=== PATIENT | male | born 1935 | race Caucasian/White ===

== ENCOUNTER 2020-07-02 07:12 | Inpatient (IN) | payer OTHER ==
[~2020-07-02] VITALS: Ht 180.3 cm; Wt 94.9 kg
[2020-07-02 08:21] LABS: Basophils # (auto) 0 10 ^3/uL (0-0.2); Basophils % (auto) 0.1 % (0.0-2.0); Eosinophils # (auto) 0 10 ^3/uL (0-0.8); Monocytes # (auto) 0.7 10 ^3/uL (0-1.3); Red Blood Cells 2.28 10^6/uL (4.5-5.90)
[2020-07-02 08:23] LABS: Hematocrit 24.1 % (41.0-53.0); Hemoglobin 8.1 g/dL (13.5-17.5); Lymphocytes # (auto) 10.3 10 ^3/uL (0.4-5.4); Lymphocytes % (auto) 37.6 % (10.0-50.0); Mean Corpuscular Hemoglobin 35.6 pg (28.0-32.0); Mean Corpuscular Hgb Conc. 33.6 g/dL (32.0-36.0); Mean Corpuscular Volume 105.9 fL (80.0-100.0); Monocytes % (auto) 2.7 % (0.0-12.0); Neutrophils # (auto) 16.4 10 ^3/uL (1.6-8.6); Neutrophils % (auto) 59.6 % (37.0-80.0); Nucleated Red Blood Cells % 0.9 %; Platelet Count (auto) 213 10^3/uL (140-450); White Blood Cell 27.5 10^3/uL (4.4-10.8)
[2020-07-02] MEDS ORDERED: SODIUM CHLORIDE 0.9% 1,000 ML IV ONE ×2 (08:30→11:30)
[2020-07-02 08:52] LABS: Calcium 8.3 mg/dL (8.5-10.1); Potassium 4.6 mmol/L (3.5-5.1)
[2020-07-02 08:57] LABS: BUN/Creatinine Ratio 47.2; Bilirubin, Total 0.4 mg/dL (0.2-1.0); Total Protein 5.2 g/dL (6.4-8.2)
[2020-07-02 09:05] LABS: INR 1.06 (0.9-1.15)
[2020-07-02] MEDS ORDERED: HYDROmorphone HCL 2 MG/ML VL IV ONE (10:45)
[2020-07-02] MEDS ORDERED: ONDANSETRON HCL 4 MG/2 ML VIAL IV ONE (10:45)
[2020-07-02] MEDS ORDERED: MORPHINE SULF INJ 2 MG/ML SYRINGE 1ML IV PRN (11:30)
[2020-07-02] MEDS ORDERED: NITROGLYCERIN 0.4 MG SL TAB SL PRN (11:30)
[2020-07-02] MEDS: SODIUM CHLORIDE 0.9% 1,000 ML IV SCH ×2 (11:43→21:30)
[2020-07-02] MEDS ORDERED: IOHEXOL 350 MG/ML 100ML IJ ONE (11:43)
[2020-07-02] MEDS ORDERED: ALBUTEROL SULF 2.5 MG/0.5ML(0.5%) NEB SOLN NEB PRN (11:45)
[2020-07-02] MEDS ORDERED: ONDANSETRON HCL 4 MG/2 ML VIAL IV PRN (11:45)
[2020-07-02] MEDS ORDERED: IPRATROPIUM BROM 0.5 MG/2.5ML INH SOL NEB PRN (11:45)
[2020-07-02 12:06] LABS: Urine Bacteria NONE SEEN /hpf (None Seen); Urine Blood TRACE /uL (Negative); Urine Mucus FEW (None Seen); Urine Specific Gravity 1.024 (1.001-1.035); Urine WBC 1 /hpf (0 - 3)
[2020-07-02] MEDS: PIPERACILLIN-TAZOB 3.375GM 100 ML IV SCH ×2 (12:14→17:18)
[2020-07-02 13:09] VITALS: BP 125/87
[2020-07-02] MEDS ORDERED: AMLO-489 PO (14:28)
[2020-07-02] MEDS ORDERED: TERA5CAP PO (14:28)
[2020-07-02] MEDS ORDERED: ALBU108A5 INH (14:28)
[2020-07-02] MEDS ORDERED: CEFU500T43 PO (14:28)
[2020-07-02] MEDS ORDERED: FIN5T PO (14:28)
[2020-07-02 17:00] VITALS: BP 111/63
[2020-07-02] MEDS: MORPHINE SULF INJ 2 MG/ML SYRINGE 1ML IV PRN (17:17)
[2020-07-02] MEDS: SUCRALFATE 1 GM/10 ML ORAL SUSP PO SCH ×2 (18:54→21:50)
[2020-07-02] MEDS: PANTOPRAZOLE 40 MG TAB PO SCH (21:50)
[2020-07-02 22:00] VITALS: BP 137/61
[2020-07-02] MEDS ORDERED: PANTOPRAZOLE 40 MG/10 ML VIAL INJ IV SCH (22:00)
[2020-07-03] VITALS (9 sets, daily range): BP systolic 119–132; BP diastolic 54–66
[2020-07-03] MEDS: PIPERACILLIN-TAZOB 3.375GM 100 ML IV SCH ×4 (00:41→20:00)
[2020-07-03] MEDS: MORPHINE SULF INJ 2 MG/ML SYRINGE 1ML IV PRN ×3 (06:40→23:55)
[2020-07-03] MEDS: SUCRALFATE 1 GM/10 ML ORAL SUSP PO SCH ×4 (07:01→21:44)
[2020-07-03] MEDS: SODIUM CHLORIDE 0.9% 1,000 ML IV SCH ×3 (07:30→15:15)
[2020-07-03] MEDS: PANTOPRAZOLE 40 MG TAB PO SCH ×2 (10:00→21:45)
[2020-07-03 11:42] LABS: Basophils # (auto) 0 10 ^3/uL (0-0.2); Eosinophils # (auto) 0.1 10 ^3/uL (0-0.8); Eosinophils % (auto) 0.4 % (0.0-7.0)
[2020-07-03 11:47] LABS: Hematocrit 18.4 % (41.0-53.0); Lymphocytes # (auto) 8.7 10 ^3/uL (0.4-5.4); Lymphocytes % (auto) 37.5 % (10.0-50.0); Mean Corpuscular Hemoglobin 36.3 pg (28.0-32.0); Mean Corpuscular Hgb Conc. 34.2 g/dL (32.0-36.0); Mean Corpuscular Volume 106.1 fL (80.0-100.0); Monocytes # (auto) 1.2 10 ^3/uL (0-1.3); Monocytes % (auto) 5.2 % (0.0-12.0); Neutrophils # (auto) 13.2 10 ^3/uL (1.6-8.6); Neutrophils % (auto) 56.9 % (37.0-80.0); Nucleated Red Blood Cells % 0.2 %; Platelet Count (auto) 170 10^3/uL (140-450); Red Blood Cells 1.73 10^6/uL (4.5-5.90); Red Cell Distribution Width 12.7 % (11.8-14.3); White Blood Cell 23.1 10^3/uL (4.4-10.8)
[2020-07-03 11:53] LABS: Hemoglobin 6.3 g/dL (13.5-17.5)
[2020-07-03] MEDS ORDERED: ADENOSINE 70 MG in GIVE UN-DILUTED 0 ML IV STA (11:55)
[2020-07-03 12:09] LABS: Potassium 4.1 mmol/L (3.5-5.1)
[2020-07-03 12:21] LABS: BUN/Creatinine Ratio 31.6; Calcium 7.8 mg/dL (8.5-10.1)
[2020-07-03 13:24] LABS: % Iron Saturation 11.6 % (20-55)
[2020-07-03 13:54] LABS: Folate (Folic Acid) 10.35 ng/mL (5.38-24)
[2020-07-03 20:29] LABS: Hemoglobin 7.1 g/dL (13.5-17.5)
[2020-07-03 20:48] LABS: INR 1.06 (0.9-1.15); Partial Thromboplastin Time 35.9 sec (23.0-31.2)
[2020-07-03] MEDS: TERAZOSIN HCL 1 MG CAP PO SCH (22:06)
[2020-07-04] VITALS (11 sets, daily range): BP systolic 113–137; BP diastolic 57–82
[2020-07-04] MEDS: PIPERACILLIN-TAZOB 3.375GM 100 ML IV SCH ×4 (01:52→20:51)
[2020-07-04] MEDS: SODIUM CHLORIDE 0.9% 1,000 ML IV SCH ×2 (04:35→20:51)
[2020-07-04 06:27] LABS: BUN/Creatinine Ratio 24.2; Calcium 7.7 mg/dL (8.5-10.1); Potassium 3.9 mmol/L (3.5-5.1)
[2020-07-04 06:28] LABS: INR 1.03 (0.9-1.15)
[2020-07-04 06:31] LABS: Basophils # (auto) 0 10 ^3/uL (0-0.2); Basophils % (auto) 0.1 % (0.0-2.0); Eosinophils # (auto) 0.3 10 ^3/uL (0-0.8); Eosinophils % (auto) 1.5 % (0.0-7.0); Hematocrit 21.3 % (41.0-53.0); Hemoglobin 7.2 g/dL (13.5-17.5); Lymphocytes # (auto) 9.1 10 ^3/uL (0.4-5.4); Lymphocytes % (auto) 42.4 % (10.0-50.0); Mean Corpuscular Hemoglobin 34.7 pg (28.0-32.0); Mean Corpuscular Hgb Conc. 33.8 g/dL (32.0-36.0); Mean Corpuscular Volume 102.7 fL (80.0-100.0); Monocytes # (auto) 1.3 10 ^3/uL (0-1.3); Monocytes % (auto) 6.2 % (0.0-12.0); Neutrophils # (auto) 10.7 10 ^3/uL (1.6-8.6); Neutrophils % (auto) 49.8 % (37.0-80.0); Nucleated Red Blood Cells % 0.3 %; Platelet Count (auto) 178 10^3/uL (140-450); Red Blood Cells 2.07 10^6/uL (4.5-5.90); Red Cell Distribution Width 15.4 % (11.8-14.3); White Blood Cell 21.6 10^3/uL (4.4-10.8)
[2020-07-04] MEDS: SUCRALFATE 1 GM/10 ML ORAL SUSP PO SCH ×4 (06:35→22:02)
[2020-07-04] MEDS: MORPHINE SULF INJ 2 MG/ML SYRINGE 1ML IV PRN (06:57)
[2020-07-04] MEDS: PANTOPRAZOLE 40 MG TAB PO SCH ×2 (13:25→22:02)
[2020-07-04] MEDS: DOCUSATE SOD 100 MG CAP PO PRN (16:30)
[2020-07-04] MEDS: HYDROcodone-ACET 5/325MG TAB PO PRN (17:03)
[2020-07-04] MEDS: TERAZOSIN HCL 1 MG CAP PO SCH (22:02)
[2020-07-04 23:44] LABS: Hematocrit 23.4 % (41.0-53.0)
[2020-07-05] VITALS (11 sets, daily range): BP systolic 131–145; BP diastolic 57–75
[2020-07-05] MEDS: PIPERACILLIN-TAZOB 3.375GM 100 ML IV SCH (03:17)
[2020-07-05] MEDS: MORPHINE SULF INJ 2 MG/ML SYRINGE 1ML IV PRN (05:24)
[2020-07-05] MEDS: SUCRALFATE 1 GM/10 ML ORAL SUSP PO SCH (05:37)
[2020-07-05 06:03] LABS: Basophils # (auto) 0 10 ^3/uL (0-0.2); Basophils % (auto) 0.1 % (0.0-2.0); Eosinophils # (auto) 0.5 10 ^3/uL (0-0.8)
[2020-07-05 06:05] LABS: Eosinophils % (auto) 2.4 % (0.0-7.0); Hemoglobin 7.9 g/dL (13.5-17.5); Lymphocytes # (auto) 9.6 10 ^3/uL (0.4-5.4); Lymphocytes % (auto) 44.6 % (10.0-50.0); Mean Corpuscular Hemoglobin 34.7 pg (28.0-32.0); Mean Corpuscular Hgb Conc. 34.4 g/dL (32.0-36.0); Monocytes # (auto) 1.4 10 ^3/uL (0-1.3); Monocytes % (auto) 6.4 % (0.0-12.0); Neutrophils % (auto) 46.5 % (37.0-80.0); Nucleated Red Blood Cells % 0.2 %; Platelet Count (auto) 185 10^3/uL (140-450); Red Blood Cells 2.28 10^6/uL (4.5-5.90); Red Cell Distribution Width 15.9 % (11.8-14.3); White Blood Cell 21.6 10^3/uL (4.4-10.8)
[2020-07-05 06:20] LABS: Potassium 3.9 mmol/L (3.5-5.1)
[2020-07-05 06:26] LABS: BUN/Creatinine Ratio 22.1; Calcium 7.6 mg/dL (8.5-10.1)
[2020-07-05] MEDS ORDERED: TRANEXAMIC ACID 20 ML ONE (11:34)
[2020-07-05] MEDS ORDERED: VANCOMYCIN HCL 1000 MG VL ONE (11:35)
[2020-07-05] MEDS ORDERED: EPINEPHrine HCL 1 MG/1 ML AMP ONE (11:35)
[2020-07-05] MEDS ORDERED: TETRACAINE 1% INJ 2 ML VIAL IJ ONE (12:13)
[2020-07-05] MEDS ORDERED: fentaNYL CITRATE 100 MCG/2 ML VL ONE (12:33)
[2020-07-05] MEDS ORDERED: MORPHINE SULF(PF) 0.5MG/ML 10ML VIAL ONE (12:33)
[2020-07-05] MEDS ORDERED: MIDAZOLAM HCL 1MG/1ML-2 ML VIAL ONE (12:33)
[2020-07-05] MEDS ORDERED: ceFAZolin 1GM/50ML 100 ML IV ONE (12:35)
[2020-07-05] MEDS ORDERED: DexAMETHasone SOD PHOS 10MG/1ML VIAL INJ ONE (13:17)
[2020-07-05] MEDS ORDERED: MORPHINE SULFATE 4 MG/ML SYR/VIAL IV PRN (13:30)
[2020-07-05] MEDS ORDERED: ePHEDrine SULFATE 50 MG/ML AMP IV PRN (13:30)
[2020-07-05] MEDS ORDERED: NALOXONE HCL 0.4 MG/ML VIAL IV PRN (13:30)
[2020-07-05] MEDS ORDERED: HYDROmorphone HCL 2 MG/ML VL IV PRN ×2 (13:30)
[2020-07-05] MEDS ORDERED: ONDANSETRON HCL 4 MG/2 ML VIAL IV PRN ×2 (13:30)
[2020-07-05] MEDS ORDERED: MIDAZOLAM HCL 1MG/1ML-2 ML VIAL IV PRN (13:30)
[2020-07-05] MEDS ORDERED: diphenhdrAMINE HCL 50 MG/1 ML VL IV PRN (13:30)
[2020-07-05] MEDS ORDERED: NALBUPHINE HCL 10 MG/1ml INJECTION SUBCUT ONE (13:30)
[2020-07-05] MEDS ORDERED: LABETALOL HCL 5 MG/ML 4ML SYRINGE IV PRN (13:30)
[2020-07-05] MEDS ORDERED: DexAMETHasone SOD PHOS 10MG/1ML VIAL INJ IV PRN (13:30)
[2020-07-05] MEDS ORDERED: PHENYLEPHRINE HCL 10 MG/ML VL ONE (14:52)
[2020-07-05 17:14] LABS: Hematocrit 26.2 % (41.0-53.0); Hemoglobin 8.6 g/dL (13.5-17.5); Mean Corpuscular Hemoglobin 32.8 pg (28.0-32.0); Mean Corpuscular Hgb Conc. 32.8 g/dL (32.0-36.0); Mean Corpuscular Volume 99.9 fL (80.0-100.0); Platelet Count (auto) 201 10^3/uL (140-450); Red Blood Cells 2.62 10^6/uL (4.5-5.90); Red Cell Distribution Width 18.4 % (11.8-14.3); White Blood Cell 26.7 10^3/uL (4.4-10.8)
[2020-07-05 17:15] LABS: Basophils % (manual) 0 (0.0-2.0); Blast Cells 0; Eosinophils % (manual) 0 (0-7); Metamyelocytes % 0; Myelocytes % 0; Promyelocytes % 0; Reactive Lymphocytes 0
[2020-07-05 18:45] LABS: Band Neutrophils % (manual) 2; Lymphocytes % (manual) 43 (10.0-50.0); Monocytes % (manual) 2 (0-12)
[2020-07-05] MEDS: SODIUM CHLORIDE 0.9% 1,000 ML IV SCH (20:35)
[2020-07-05] MEDS: TERAZOSIN HCL 1 MG CAP PO SCH (22:00)
[2020-07-06] VITALS (13 sets, daily range): BP systolic 123–150; BP diastolic 64–78
[2020-07-06] MEDS: ceFAZolin 1GM/50ML 50 ML IV SCH ×2 (00:22→05:19)
[2020-07-06] MEDS: SODIUM CHLORIDE 0.9% 1,000 ML IV SCH ×3 (00:26→22:09)
[2020-07-06] MEDS ORDERED: ALBUTEROL SULF 2.5 MG/0.5ML(0.5%) NEB SOLN NEB PRN (04:45)
[2020-07-06] MEDS: HYDROcodone-ACET 5/325MG TAB PO PRN ×2 (05:17→18:17)
[2020-07-06 06:44] LABS: Basophils # (auto) 0 10 ^3/uL (0-0.2); Basophils % (auto) 0.1 % (0.0-2.0); Eosinophils # (auto) 0.1 10 ^3/uL (0-0.8); Eosinophils % (auto) 0.3 % (0.0-7.0); Hematocrit 25.4 % (41.0-53.0); Hemoglobin 8.6 g/dL (13.5-17.5); Lymphocytes # (auto) 10.1 10 ^3/uL (0.4-5.4); Lymphocytes % (auto) 42.1 % (10.0-50.0); Mean Corpuscular Hemoglobin 33.4 pg (28.0-32.0); Mean Corpuscular Hgb Conc. 33.7 g/dL (32.0-36.0); Mean Corpuscular Volume 99.2 fL (80.0-100.0); Monocytes # (auto) 1.6 10 ^3/uL (0-1.3); Monocytes % (auto) 6.6 % (0.0-12.0); Neutrophils # (auto) 12.2 10 ^3/uL (1.6-8.6); Neutrophils % (auto) 50.9 % (37.0-80.0); Nucleated Red Blood Cells % 0.1 %; Platelet Count (auto) 198 10^3/uL (140-450); Red Blood Cells 2.56 10^6/uL (4.5-5.90); Red Cell Distribution Width 17.9 % (11.8-14.3); White Blood Cell 23.9 10^3/uL (4.4-10.8)
[2020-07-06 07:04] LABS: Calcium 7.9 mg/dL (8.5-10.1); Potassium 4.1 mmol/L (3.5-5.1)
[2020-07-06 07:06] LABS: BUN/Creatinine Ratio 21.3
[2020-07-06] MEDS: ENOXAPARIN SOD 40 MG/0.4 ML SYRINGE SC SCH (09:15)
[2020-07-06] MEDS: PANTOPRAZOLE 40 MG TAB PO SCH ×3 (09:15→22:02)
[2020-07-06] MEDS: MORPHINE SULF INJ 2 MG/ML SYRINGE 1ML IV PRN ×3 (10:31→22:03)
[2020-07-06] MEDS: SUCRALFATE 1 GM/10 ML ORAL SUSP PO SCH ×4 (11:26→22:02)
[2020-07-06] MEDS: PIPERACILLIN-TAZOB 3.375GM 100 ML IV SCH ×3 (14:16→23:04)
[2020-07-06] MEDS: Ensure HIGH Protein Chocolate 8oz Bottle PO SCH ×2 (14:16→18:17)
[2020-07-06] MEDS: ACETAMINOPHEN 500 MG TAB PO PRN (16:47)
[2020-07-06] MEDS: ALBUTEROL SULF 2.5 MG/0.5ML(0.5%) NEB SOLN NEB SCH (19:15)
[2020-07-06] MEDS: TERAZOSIN HCL 1 MG CAP PO SCH (23:04)
[2020-07-07] MEDS: MORPHINE SULF INJ 2 MG/ML SYRINGE 1ML IV PRN ×3 (04:08→20:32)
[2020-07-07 05:14] VITALS: BP 139/70
[2020-07-07] MEDS: PIPERACILLIN-TAZOB 3.375GM 100 ML IV SCH ×3 (06:00→17:09)
[2020-07-07] MEDS: SUCRALFATE 1 GM/10 ML ORAL SUSP PO SCH ×4 (06:01→21:14)
[2020-07-07] MEDS: HYDROcodone-ACET 5/325MG TAB PO PRN ×3 (06:10→22:56)
[2020-07-07 06:21] LABS: Basophils # (auto) 0 10 ^3/uL (0-0.2); Eosinophils # (auto) 0.2 10 ^3/uL (0-0.8); Eosinophils % (auto) 0.9 % (0.0-7.0); Hemoglobin 8.1 g/dL (13.5-17.5); Lymphocytes # (auto) 8.7 10 ^3/uL (0.4-5.4); Red Blood Cells 2.37 10^6/uL (4.5-5.90)
[2020-07-07 06:24] LABS: Basophils % (auto) 0.2 % (0.0-2.0); Hematocrit 23.3 % (41.0-53.0); Lymphocytes % (auto) 40.9 % (10.0-50.0); Mean Corpuscular Hemoglobin 34.3 pg (28.0-32.0); Mean Corpuscular Hgb Conc. 34.8 g/dL (32.0-36.0); Mean Corpuscular Volume 98.4 fL (80.0-100.0); Monocytes # (auto) 1.3 10 ^3/uL (0-1.3); Monocytes % (auto) 6.3 % (0.0-12.0); Neutrophils % (auto) 51.7 % (37.0-80.0); Nucleated Red Blood Cells % 0.5 %; Platelet Count (auto) 209 10^3/uL (140-450); Red Cell Distribution Width 17.6 % (11.8-14.3); White Blood Cell 21.3 10^3/uL (4.4-10.8)
[2020-07-07] MEDS: ALBUTEROL SULF 2.5 MG/0.5ML(0.5%) NEB SOLN NEB SCH ×3 (06:36→18:37)
[2020-07-07 06:57] LABS: BUN/Creatinine Ratio 17.6; Bilirubin, Total 0.6 mg/dL (0.2-1.0); Calcium 8.1 mg/dL (8.5-10.1); Total Protein 4.7 g/dL (6.4-8.2)
[2020-07-07] MEDS: Ensure HIGH Protein Chocolate 8oz Bottle PO SCH ×3 (08:00→17:09)
[2020-07-07 09:00] VITALS: BP 126/66
[2020-07-07] MEDS: PANTOPRAZOLE 40 MG TAB PO SCH ×2 (10:21→21:15)
[2020-07-07] MEDS: ENOXAPARIN SOD 40 MG/0.4 ML SYRINGE SC SCH (10:21)
[2020-07-07] MEDS: SODIUM CHLORIDE 0.9% 1,000 ML IV SCH (12:08)
[2020-07-07] MEDS: DOCUSATE SOD 100 MG CAP PO PRN (12:28)
[2020-07-07 13:00] VITALS: BP 144/70
[2020-07-07] MEDS: ACETAMINOPHEN 500 MG TAB PO PRN (16:36)
[2020-07-07 17:00] VITALS: BP 147/70
[2020-07-07] MEDS: TERAZOSIN HCL 1 MG CAP PO SCH (21:14)
[2020-07-07 22:59] VITALS: BP 138/83
[2020-07-08] MEDS: PIPERACILLIN-TAZOB 3.375GM 100 ML IV SCH ×2 (00:10→06:00)
[2020-07-08] MEDS: SODIUM CHLORIDE 0.9% 1,000 ML IV SCH ×2 (01:53→12:05)
[2020-07-08] MEDS: MORPHINE SULF INJ 2 MG/ML SYRINGE 1ML IV PRN ×3 (01:54→20:02)
[2020-07-08 05:00] VITALS: BP 133/64
[2020-07-08] MEDS: SUCRALFATE 1 GM/10 ML ORAL SUSP PO SCH ×4 (06:00→23:43)
[2020-07-08] MEDS: HYDROcodone-ACET 5/325MG TAB PO PRN ×3 (06:01→18:30)
[2020-07-08 07:50] LABS: Basophils # (auto) 0 10 ^3/uL (0-0.2); Basophils % (auto) 0.1 % (0.0-2.0); Monocytes # (auto) 1.4 10 ^3/uL (0-1.3); Neutrophils # (auto) 11.6 10 ^3/uL (1.6-8.6); Nucleated Red Blood Cells % 0.1 %; White Blood Cell 22.9 10^3/uL (4.4-10.8)
[2020-07-08 07:54] LABS: Eosinophils # (auto) 0.3 10 ^3/uL (0-0.8); Eosinophils % (auto) 1.4 % (0.0-7.0); Hematocrit 23.8 % (41.0-53.0); Lymphocytes # (auto) 9.6 10 ^3/uL (0.4-5.4); Lymphocytes % (auto) 41.9 % (10.0-50.0); Mean Corpuscular Hemoglobin 33.3 pg (28.0-32.0); Mean Corpuscular Hgb Conc. 33.7 g/dL (32.0-36.0); Mean Corpuscular Volume 98.7 fL (80.0-100.0); Monocytes % (auto) 6.1 % (0.0-12.0); Neutrophils % (auto) 50.5 % (37.0-80.0); Platelet Count (auto) 251 10^3/uL (140-450); Red Blood Cells 2.41 10^6/uL (4.5-5.90); Red Cell Distribution Width 17.8 % (11.8-14.3)
[2020-07-08] MEDS: ALBUTEROL SULF 2.5 MG/0.5ML(0.5%) NEB SOLN NEB SCH ×3 (08:05→18:28)
[2020-07-08 08:19] LABS: Calcium 8.3 mg/dL (8.5-10.1); Potassium 3.6 mmol/L (3.5-5.1)
[2020-07-08 08:23] LABS: BUN/Creatinine Ratio 19.5
[2020-07-08 08:57] VITALS: BP 128/62
[2020-07-08] MEDS: Ensure HIGH Protein Chocolate 8oz Bottle PO SCH ×3 (09:35→18:24)
[2020-07-08] MEDS: PANTOPRAZOLE 40 MG TAB PO SCH ×2 (09:35→23:45)
[2020-07-08] MEDS: ENOXAPARIN SOD 40 MG/0.4 ML SYRINGE SC SCH (09:36)
[2020-07-08] MEDS ORDERED: VANCOMYCIN PER PHARMACY 0 MG IV SCH (11:45)
[2020-07-08] MEDS: DOCUSATE SOD 100 MG CAP PO PRN (12:07)
[2020-07-08 13:00] VITALS: BP 124/60
[2020-07-08] MEDS: VANCOMYCIN 1GM/250ML 250 ML IV SCH (14:29)
[2020-07-08] MEDS: MEROPENEM 1GM IVPB 100 ML IV SCH ×2 (15:49→23:43)
[2020-07-08 16:57] VITALS: BP 137/70
[2020-07-08 18:28] VITALS: BP 137/70
[2020-07-08 22:00] VITALS: BP 126/68
[2020-07-08] MEDS: TERAZOSIN HCL 1 MG CAP PO SCH (23:44)
[2020-07-09] MEDS: VANCOMYCIN 1GM/250ML 250 ML IV SCH ×2 (01:30→11:59)
[2020-07-09] MEDS: SODIUM CHLORIDE 0.9% 1,000 ML IV SCH (04:35)
[2020-07-09 05:00] VITALS: BP 117/67
[2020-07-09] MEDS: MEROPENEM 1GM IVPB 100 ML IV SCH (06:12)
[2020-07-09] MEDS: SUCRALFATE 1 GM/10 ML ORAL SUSP PO SCH ×4 (06:12→22:36)
[2020-07-09] MEDS: ALBUTEROL SULF 2.5 MG/0.5ML(0.5%) NEB SOLN NEB SCH ×3 (06:44→19:01)
[2020-07-09 07:29] LABS: Basophils # (auto) 0 10 ^3/uL (0-0.2); Eosinophils # (auto) 0.5 10 ^3/uL (0-0.8); Hematocrit 22.1 % (41.0-53.0); Hemoglobin 7.6 g/dL (13.5-17.5); Lymphocytes # (auto) 10.2 10 ^3/uL (0.4-5.4); Lymphocytes % (auto) 44.5 % (10.0-50.0); Mean Corpuscular Hemoglobin 33.6 pg (28.0-32.0); Mean Corpuscular Hgb Conc. 34.2 g/dL (32.0-36.0); Mean Corpuscular Volume 98.1 fL (80.0-100.0); Monocytes # (auto) 1.3 10 ^3/uL (0-1.3); Monocytes % (auto) 5.8 % (0.0-12.0); Neutrophils % (auto) 47.7 % (37.0-80.0); Nucleated Red Blood Cells % 0.2 %; Platelet Count (auto) 304 10^3/uL (140-450); Red Blood Cells 2.25 10^6/uL (4.5-5.90); Red Cell Distribution Width 17.6 % (11.8-14.3)
[2020-07-09] MEDS: Ensure HIGH Protein Chocolate 8oz Bottle PO SCH ×3 (08:00→16:38)
[2020-07-09 08:05] LABS: Potassium 4.2 mmol/L (3.5-5.1)
[2020-07-09 08:13] LABS: Albumin 1.9 g/dL (3.4-5.0); BUN/Creatinine Ratio 20.5; Bilirubin, Total 0.4 mg/dL (0.2-1.0); Calcium 8.6 mg/dL (8.5-10.1)
[2020-07-09 08:30] VITALS: BP 148/68
[2020-07-09] MEDS: PANTOPRAZOLE 40 MG TAB PO SCH ×2 (09:55→22:37)
[2020-07-09] MEDS: ENOXAPARIN SOD 40 MG/0.4 ML SYRINGE SC SCH (09:56)
[2020-07-09 12:30] VITALS: BP 141/78
[2020-07-09] MEDS ORDERED: LACTULOSE 20Gm/30ML SOLN PO ONE (12:30)
[2020-07-09] MEDS: ACETAMINOPHEN 325 MG TAB PO PRN ×2 (16:12→22:40)
[2020-07-09 17:00] VITALS: BP 135/70
[2020-07-09 22:00] VITALS: BP 120/59
[2020-07-09] MEDS: TERAZOSIN HCL 1 MG CAP PO SCH (22:39)
[2020-07-10] MEDS: VANCOMYCIN 1GM/250ML 250 ML IV SCH ×2 (00:59→13:20)
[2020-07-10] MEDS: traMADol HCL 50 MG TAB PO PRN ×2 (03:45→11:54)
[2020-07-10 05:00] VITALS: BP 134/64
[2020-07-10] MEDS: SUCRALFATE 1 GM/10 ML ORAL SUSP PO SCH ×4 (06:13→21:25)
[2020-07-10 06:32] LABS: Basophils # (auto) 0.1 10 ^3/uL (0-0.2); Eosinophils # (auto) 0.4 10 ^3/uL (0-0.8); Eosinophils % (auto) 1.7 % (0.0-7.0); Hemoglobin 7.3 g/dL (13.5-17.5); Red Cell Distribution Width 17.3 % (11.8-14.3)
[2020-07-10 06:35] LABS: Basophils % (auto) 0.4 % (0.0-2.0); Hematocrit 21.6 % (41.0-53.0); Lymphocytes # (auto) 10.1 10 ^3/uL (0.4-5.4); Lymphocytes % (auto) 46.5 % (10.0-50.0); Mean Corpuscular Hgb Conc. 33.8 g/dL (32.0-36.0); Mean Corpuscular Volume 97.7 fL (80.0-100.0); Monocytes # (auto) 1.4 10 ^3/uL (0-1.3); Monocytes % (auto) 6.3 % (0.0-12.0); Neutrophils # (auto) 9.8 10 ^3/uL (1.6-8.6); Neutrophils % (auto) 45.1 % (37.0-80.0); Nucleated Red Blood Cells % 77.2 %; Platelet Count (auto) 338 10^3/uL (140-450); Red Blood Cells 2.21 10^6/uL (4.5-5.90); White Blood Cell 21.8 10^3/uL (4.4-10.8)
[2020-07-10 06:53] LABS: Potassium 4.2 mmol/L (3.5-5.1)
[2020-07-10 07:15] LABS: Calcium 8.2 mg/dL (8.5-10.1)
[2020-07-10 09:18] VITALS: BP 132/62
[2020-07-10] MEDS: PANTOPRAZOLE 40 MG TAB PO SCH ×2 (09:33→21:26)
[2020-07-10] MEDS: ACETAMINOPHEN 325 MG TAB PO PRN ×2 (09:34→21:32)
[2020-07-10] MEDS: levoFLOXacin 500MG 100 ML IV SCH (09:34)
[2020-07-10] MEDS: Ensure HIGH Protein Chocolate 8oz Bottle PO SCH ×3 (09:35→18:00)
[2020-07-10] MEDS: ALBUTEROL SULF 2.5 MG/0.5ML(0.5%) NEB SOLN NEB SCH ×3 (12:25→18:48)
[2020-07-10 12:58] VITALS: BP 127/66
[2020-07-10 16:56] VITALS: BP 134/73
[2020-07-10] MEDS ORDERED: TAMSULOSIN HYDROCHLORIDE 0.4 MG CAP PO SCH (18:00)
[2020-07-10] MEDS: TERAZOSIN HCL 1 MG CAP PO SCH (21:28)
[2020-07-10 22:00] VITALS: BP 145/64
[2020-07-11] VITALS (7 sets, daily range): BP systolic 126–141; BP diastolic 62–70
[2020-07-11] MEDS: VANCOMYCIN 1GM/250ML 250 ML IV SCH (01:01)
[2020-07-11] MEDS: traMADol HCL 50 MG TAB PO PRN ×2 (01:56→09:55)
[2020-07-11] MEDS: ACETAMINOPHEN 325 MG TAB PO PRN (04:22)
[2020-07-11 05:45] LABS: Lymphocytes # (auto) 10.9 10 ^3/uL (0.4-5.4); Nucleated Red Blood Cells % 0.3 %; Platelet Count (auto) 405 10^3/uL (140-450); Red Cell Distribution Width 17.5 % (11.8-14.3)
[2020-07-11 05:46] LABS: Basophils # (auto) 0 10 ^3/uL (0-0.2); Basophils % (auto) 0.2 % (0.0-2.0); Eosinophils # (auto) 0.5 10 ^3/uL (0-0.8); Eosinophils % (auto) 2.4 % (0.0-7.0); Hematocrit 21.5 % (41.0-53.0); Hemoglobin 7.2 g/dL (13.5-17.5); Lymphocytes % (auto) 50.6 % (10.0-50.0); Mean Corpuscular Hemoglobin 32.7 pg (28.0-32.0); Mean Corpuscular Hgb Conc. 33.5 g/dL (32.0-36.0); Mean Corpuscular Volume 97.6 fL (80.0-100.0); Monocytes # (auto) 1.4 10 ^3/uL (0-1.3); Monocytes % (auto) 6.5 % (0.0-12.0); Neutrophils # (auto) 8.7 10 ^3/uL (1.6-8.6); Neutrophils % (auto) 40.3 % (37.0-80.0); White Blood Cell 21.5 10^3/uL (4.4-10.8)
[2020-07-11] MEDS: ALBUTEROL SULF 2.5 MG/0.5ML(0.5%) NEB SOLN NEB SCH ×3 (06:20→18:18)
[2020-07-11] MEDS: SUCRALFATE 1 GM/10 ML ORAL SUSP PO SCH ×4 (06:25→22:00)
[2020-07-11] MEDS: Ensure HIGH Protein Chocolate 8oz Bottle PO SCH ×3 (08:00→18:13)
[2020-07-11] MEDS: PANTOPRAZOLE 40 MG TAB PO SCH ×2 (09:55→22:00)
[2020-07-11] MEDS: levoFLOXacin 500MG 100 ML IV SCH (09:55)
[2020-07-11] MEDS ORDERED: ENOXAPARIN SOD 30 MG/0.3 ML SYRINGE SC ONE (11:45)
[2020-07-11] MEDS: DOXYCYCLINE 100 MG TAB/CAP PO SCH (22:00)
[2020-07-11] MEDS: TERAZOSIN HCL 1 MG CAP PO SCH (22:00)
[2020-07-12] MEDS: ACETAMINOPHEN 500 MG TAB PO PRN (01:05)
[2020-07-12 05:00] VITALS: BP 134/71
[2020-07-12] MEDS: SUCRALFATE 1 GM/10 ML ORAL SUSP PO SCH ×3 (06:38→17:20)
[2020-07-12 06:45] LABS: Basophils # (auto) 0.1 10 ^3/uL (0-0.2); Basophils % (auto) 0.3 % (0.0-2.0); Eosinophils # (auto) 0.4 10 ^3/uL (0-0.8); Hemoglobin 7.3 g/dL (13.5-17.5); Lymphocytes % (auto) 52.8 % (10.0-50.0); Mean Corpuscular Volume 97.6 fL (80.0-100.0)
[2020-07-12 06:48] LABS: Eosinophils % (auto) 1.9 % (0.0-7.0); Hematocrit 21.4 % (41.0-53.0); Lymphocytes # (auto) 11.2 10 ^3/uL (0.4-5.4); Mean Corpuscular Hemoglobin 33.3 pg (28.0-32.0); Mean Corpuscular Hgb Conc. 34.2 g/dL (32.0-36.0); Monocytes # (auto) 1.5 10 ^3/uL (0-1.3); Monocytes % (auto) 7.2 % (0.0-12.0); Neutrophils % (auto) 37.8 % (37.0-80.0); Platelet Count (auto) 473 10^3/uL (140-450); Red Blood Cells 2.19 10^6/uL (4.5-5.90); Red Cell Distribution Width 17.5 % (11.8-14.3)
[2020-07-12] MEDS: ALBUTEROL SULF 2.5 MG/0.5ML(0.5%) NEB SOLN NEB SCH ×3 (07:25→17:48)
[2020-07-12 08:41] LABS: White Blood Cell 21.2 10^3/uL (4.4-10.8)
[2020-07-12 09:00] VITALS: BP 131/81
[2020-07-12] MEDS: DOXYCYCLINE 100 MG TAB/CAP PO SCH (09:07)
[2020-07-12] MEDS: PANTOPRAZOLE 40 MG TAB PO SCH (09:07)
[2020-07-12] MEDS: Ensure HIGH Protein Chocolate 8oz Bottle PO SCH ×3 (09:07→18:21)
[2020-07-12] MEDS ORDERED: ENOXAPARIN SOD 30 MG/0.3 ML SYRINGE SC SCH (10:00)
[2020-07-12] MEDS: ACETAMINOPHEN 325 MG TAB PO PRN (11:51)
[2020-07-12 13:00] VITALS: BP 135/66
[2020-07-12 16:15] VITALS: BP 128/64
[2020-07-12 17:00] VITALS: BP 127/70
== END 2020-07-12 19:08 | disposition home health service (06) | DRG 853 ==
LOC: EDBD 07:12 → ER 07:12 → TELE 11:20 → TELE-WESTW 12:58
PROVIDERS: ADMIT Nurse Practitioner Acute Care; ATTEND Internal Medicine
PROC: 30233N1 Transfusion of Nonautologous Red Blood Cells into Peripheral Vein, Percutaneous Approach (ICD-10-PCS; 2020-07-03)
PROC: 0SRS0J9 Replacement of Left Hip Joint, Femoral Surface with Synthetic Substitute, Cemented, Open Approach (ICD-10-PCS; principal; 2020-07-05 12:41)
DX: A41.9 Sepsis, unspecified organism (principal); S72.012A Unspecified intracapsular fracture of left femur, initial encounter for closed fracture; N17.0 Acute kidney failure with tubular necrosis; E44.0 Moderate protein-calorie malnutrition; E87.1 Hypo-osmolality and hyponatremia; C95.10 Chronic leukemia of unspecified cell type not having achieved remission; D53.9 Nutritional anemia, unspecified; K80.20 Calculus of gallbladder without cholecystitis without obstruction; Z68.26 Body mass index [BMI] 26.0-26.9, adult; N18.9 Chronic kidney disease, unspecified; N40.0 Benign prostatic hyperplasia without lower urinary tract symptoms; Z20.822 Contact with and (suspected) exposure to COVID-19; I12.9 Hypertensive chronic kidney disease with stage 1 through stage 4 chronic kidney disease, or unspecified chronic kidney disease; R12 Heartburn; J40 Bronchitis, not specified as acute or chronic; W18.39XA Other fall on same level, initial encounter; Y93.89 Activity, other specified; Z87.891 Personal history of nicotine dependence; Z91.81 History of falling; Z87.01 Personal history of pneumonia (recurrent); Y92.091 Bathroom in other non-institutional residence as the place of occurrence of the external cause; Y99.8 Other external cause status
CPT/HCPCS: 36415; 36600; 70450; 71045; 71275; 72170; 72192; 73502; 74176; 78452; 80048; 80053; 80202; 81001; 82270; 82607; 82746; 82805; 83540; 83550; 83605; 83880; 84443; 84484; 85007; 85014; 85018; 85025; 85027; 85610; 85730; 86850; 86900; 86901; 86920; 87040; 87070; 87086; 87205; 87426; 93005; 93017; 93306; 93886; 94640; 97110; 97116; 97163; 97530; 99291; A4565; G0378; J0153; J0171; J0690; J1100; J1956; J2185; J2250; J2405; J2543